=== PATIENT | female | born 1945 | race Caucasian/White ===

== ENCOUNTER 2019-07-20 12:22 | Inpatient (IN) | payer MEDICAID ==
[~2019-07-20] VITALS: Ht 157.5 cm; Wt 68.9 kg
[2019-07-20] MEDS ORDERED: KETOROLAC 30MG/ML VIAL IV STA (13:26)
[2019-07-20] MEDS ORDERED: ONDANSETRON HCL 4MG/2ML INJ IV STA (13:26)
[2019-07-20] MEDS ORDERED: SODIUM CHLORIDE 0.9% 1,000 ML IV ONE (13:26)
[2019-07-20 14:09] LABS: CLARITY URINE CLOUDY (CLEAR); COLOR URINE DARK YELLOW (YELLOW); KETONES URINE TRACE (NEGATIVE); LEUKOCYTE ESTERASE URINE TRACE (NEGATIVE); NITRITE URINE NEGATIVE (NEGATIVE); OCCULT BLOOD URINE 2+ (NEGATIVE); PROTEIN URINE 2+ (NEGATIVE); SPECIFIC GRAVITY URINE 1.027 (1.005-1.030)
[2019-07-20 14:50] LABS: BASOPHILS % 0.1 % (0.0-2.0); HEMATOCRIT. 41.7 % (36.0-48.0); LYMPHOCYTES % 9.4 % (20.0-50.0); MEAN CORPUSCULAR HEMOGLOBIN 30.2 pg (28.0-32.0); MEAN CORPUSCULAR VOLUME 89.7 fL (81.0-99.0); MEAN PLATELET VOLUME 9.6 fl (7.4-10.4); MONOCYTES % 11.8 % (2.0-8.0); NEUTROPHILS % 78.7 % (40.0-76.0); PLATELET 285 x1000/uL (130-400); RED BLOOD CELL COUNT 4.64 mill/uL (4.2-5.4); RED CELL DISTRIBUTION WIDTH 13.8 % (11.6-14.6)
[2019-07-20 14:55] LABS: CHLORIDE 98 mEq/L (98-107); INR 1.1; PROTHROMBIN TIME 11.8 sec (9.6-11.0)
[2019-07-20] MEDS ORDERED: PIPERACILLIN/TAZOBACTAM 3.375GM/50ML PREMIX IV NR (15:00)
[2019-07-20] MEDS ORDERED: ONDANSETRON HCL 4MG/2ML INJ IV PRN (17:15)
[2019-07-20] MEDS ORDERED: PIPERACILLIN/TAZ 3.375G PREMIX 50 ML IV SCH (17:15)
[2019-07-20] MEDS: SODIUM CHLORIDE 0.9% 1,000 ML IV SCH (18:27)
[2019-07-20] MEDS ORDERED: POTASSIUM CHLORIDE 20MEQ TABLET SR PO NR (22:00)
[2019-07-20 22:30] VITALS: BP 110/45
[2019-07-20] MEDS: PIPERACILLIN/TAZOBACTAM 3.375 G in DEXT 5% WATER 100 ML IV SCH (22:47)
[2019-07-20] MEDS ORDERED: HYDR25TA PO (23:41)
[2019-07-20] MEDS ORDERED: ATOR40TA70 MT (23:42)
[2019-07-20] MEDS ORDERED: LOSA50TA41 MT (23:43)
[2019-07-20] MEDS ORDERED: ASPI-1497 MT (23:44)
[2019-07-20] MEDS ORDERED: OMEP20TA2 MT (23:45)
[2019-07-21] MEDS: SODIUM CHLORIDE 0.9% 1,000 ML IV SCH ×3 (02:30→19:03)
[2019-07-21 04:00] VITALS: BP 104/68
[2019-07-21] MEDS: PIPERACILLIN/TAZOBACTAM 3.375 G in DEXT 5% WATER 100 ML IV SCH ×4 (04:32→22:16)
[2019-07-21 06:37] LABS: BASOPHILS % 0.2 % (0.0-2.0); HEMATOCRIT. 33.9 % (36.0-48.0); HEMOGLOBIN. 11.3 g/dL (12.0-16.0); LYMPHOCYTES % 10.8 % (20.0-50.0); MEAN CORPUSCULAR HEMOGLOBIN 30.2 pg (28.0-32.0); MEAN CORPUSCULAR VOLUME 90.1 fL (81.0-99.0); MEAN PLATELET VOLUME 9.3 fl (7.4-10.4); MONOCYTES % 10.9 % (2.0-8.0); NEUTROPHILS % 78.1 % (40.0-76.0); PLATELET 220 x1000/uL (130-400); RED BLOOD CELL COUNT 3.76 mill/uL (4.2-5.4); RED CELL DISTRIBUTION WIDTH 14.1 % (11.6-14.6)
[2019-07-21 06:38] LABS: CHLORIDE 105 mEq/L (98-107)
[2019-07-21 08:00] VITALS: BP 106/54
[2019-07-21] MEDS: ACETAMINOPHEN 325MG TABLET PO PRN (09:42)
[2019-07-21] MEDS ORDERED: POTASSIUM CHLORIDE INJ 40 MEQ in DEXT 5% WATER 500 ML IV NR (11:30)
[2019-07-21 12:00] VITALS: BP 110/52
[2019-07-21] MEDS ORDERED: POTASSIUM CHLORIDE 20MEQ TABLET SR PO NR (14:00)
[2019-07-21 16:30] VITALS: BP 105/47
[2019-07-21 20:00] VITALS: BP 113/51
[2019-07-22] VITALS: BP 112/46
[2019-07-22] MEDS: SODIUM CHLORIDE 0.9% 1,000 ML IV SCH ×3 (01:01→18:19)
[2019-07-22 04:00] VITALS: BP 109/48
[2019-07-22] MEDS: PIPERACILLIN/TAZOBACTAM 3.375 G in DEXT 5% WATER 100 ML IV SCH ×4 (04:13→21:15)
[2019-07-22 06:48] LABS: BASOPHILS % 0.1 % (0.0-2.0); EOSINOPHILS % 0.2 % (0.0-5.0); HEMATOCRIT. 31.6 % (36.0-48.0); HEMOGLOBIN. 10.4 g/dL (12.0-16.0); MEAN CORPUSCULAR VOLUME 90.7 fL (81.0-99.0); MEAN PLATELET VOLUME 9.5 fl (7.4-10.4); MONOCYTES % 9.1 % (2.0-8.0); NEUTROPHILS % 82.6 % (40.0-76.0); PLATELET 207 x1000/uL (130-400); RED BLOOD CELL COUNT 3.48 mill/uL (4.2-5.4); RED CELL DISTRIBUTION WIDTH 14.1 % (11.6-14.6)
[2019-07-22 06:59] LABS: CHLORIDE 111 mEq/L (98-107)
[2019-07-22 08:00] VITALS: BP 111/44
[2019-07-22] MEDS ORDERED: LIDOCAINE HCL 1% 20ML VIAL (Pyxis) INJ ONE (09:20)
[2019-07-22] MEDS ORDERED: NORMAL SALINE 0.9% 10 ML SYR ONE (09:21)
[2019-07-22] MEDS ORDERED: BACITRACIN 50,000 UNITS/VIAL ONE (09:21)
[2019-07-22] MEDS ORDERED: SKIN ADHESIVE 0.7 GM EA TOP ONE (09:21)
[2019-07-22] MEDS ORDERED: BUPIVACAINE HCL/PF 0.5% (5MG/ML) 10ML ONE (09:21)
[2019-07-22] MEDS ORDERED: ACETAMINOPHEN 650MG SUPP PR PRN (10:15)
[2019-07-22] MEDS ORDERED: ROCURONIUM BROMIDE 10MG/ML VIAL 5ML IV ONE (11:15)
[2019-07-22] MEDS ORDERED: NEOSTIGMINE METHYLSULFATE 1MG/ML 10 ML VIAL ONE (11:15)
[2019-07-22] MEDS ORDERED: FENTANYL CITRATE/PF 50MCG/ML 2ML VIAL ONE ×2 (11:15→12:54)
[2019-07-22] MEDS ORDERED: PROPOFOL 200MG/20ML VIAL IV ONE (11:15)
[2019-07-22] MEDS ORDERED: SODIUM CHLORIDE 0.9% 10ML VIAL ONE (11:16)
[2019-07-22] MEDS ORDERED: GLYCOPYRROLATE 0.2 MG/ML 2ML VIAL ONE (11:16)
[2019-07-22] MEDS ORDERED: CEFAZOLIN SODIUM 1000MG/VIAL ONE (11:16)
[2019-07-22] MEDS ORDERED: LIDOCAINE HCL/PF 1% 10 MG/ML 5ML VIAL ONE (11:16)
[2019-07-22] MEDS ORDERED: SUCCINYLCHOLINE CHLORIDE 200MG/10ML IV ONE (11:16)
[2019-07-22] MEDS ORDERED: MIDAZOLAM HCL 2 MG/2 ML VIAL ONE (11:16)
[2019-07-22] MEDS ORDERED: ONDANSETRON HCL 4MG/2ML INJ ONE (11:16)
[2019-07-22] MEDS ORDERED: METOCLOPRAMIDE HCL 10MG/2ML VIAL ONE (11:16)
[2019-07-22] MEDS ORDERED: ALBUMIN HUMAN 25GM/500ML (5%) IV NR (12:00)
[2019-07-22] MEDS ORDERED: EPHEDRINE SULFATE 50MG/ML VIAL ONE (12:03)
[2019-07-22] MEDS ORDERED: SODIUM CHLORIDE 0.9% 1,000 ML IV ONE (13:33)
[2019-07-22] MEDS ORDERED: MORPHINE SULFATE 2 MG/ML CPJ (NOT FOR IM USE) IV PRN (13:45)
[2019-07-22] MEDS ORDERED: MEPERIDINE HCL/PF 25MG/ML CPJ IV PRN (13:45)
[2019-07-22] MEDS ORDERED: ONDANSETRON HCL 4MG/2ML INJ IV PRN (13:45)
[2019-07-22] MEDS ORDERED: HYDROMORPHONE HCL/PF 2MG/ML CPJ IV PRN (13:45)
[2019-07-22 16:00] VITALS: BP 109/49
[2019-07-22] MEDS ORDERED: POTASSIUM CHLORIDE INJ 40 MEQ in DEXT 5% WATER 500 ML IV NR (17:00)
[2019-07-22] MEDS: ACETAMINOPHEN 325MG TABLET PO PRN (19:55)
[2019-07-22 20:00] VITALS: BP 108/52
[2019-07-23] VITALS: BP 102/51
[2019-07-23] MEDS: ACETAMINOPHEN 325MG TABLET PO PRN ×2 (01:47→09:35)
[2019-07-23 04:00] VITALS: BP 111/54
[2019-07-23] MEDS: PIPERACILLIN/TAZOBACTAM 3.375 G in DEXT 5% WATER 100 ML IV SCH ×2 (05:04→09:49)
[2019-07-23 07:33] LABS: CHLORIDE 110 mEq/L (98-107)
[2019-07-23 07:44] LABS: BASOPHILS % 0.1 % (0.0-2.0); EOSINOPHILS % 0.3 % (0.0-5.0); LYMPHOCYTES % 8.5 % (20.0-50.0); MEAN CORPUSCULAR HEMOGLOBIN 30.3 pg (28.0-32.0); MEAN CORPUSCULAR VOLUME 91.3 fL (81.0-99.0); MEAN PLATELET VOLUME 9.5 fl (7.4-10.4); MONOCYTES % 8.4 % (2.0-8.0); NEUTROPHILS % 82.7 % (40.0-76.0); PLATELET 239 x1000/uL (130-400); RED BLOOD CELL COUNT 3.62 mill/uL (4.2-5.4)
[2019-07-23 08:00] VITALS: BP 117/75
[2019-07-23 11:59] VITALS: BP 117/59
[2019-07-23 12:00] VITALS: BP 95/59
== END 2019-07-23 13:48 | disposition home health service (06) | DRG 710 ==
LOC: ER 12:22 → MICUSO 15:48 → EDBEDREQTM 16:03 → EDBEDREQ 16:03 → 6EST 23:28
PROVIDERS: ADMIT Internal Medicine; ATTEND Internal Medicine
PROC: 0FT44ZZ Resection of Gallbladder, Percutaneous Endoscopic Approach (ICD-10-PCS; principal; 2019-07-22)
DX: A41.9 Sepsis, unspecified organism (principal); K80.00 Calculus of gallbladder with acute cholecystitis without obstruction; N39.0 Urinary tract infection, site not specified; I10 Essential (primary) hypertension; E87.6 Hypokalemia; Z20.828 Contact with and (suspected) exposure to other viral communicable diseases; Z90.710 Acquired absence of both cervix and uterus; Z79.899 Other long term (current) drug therapy
CPT/HCPCS: 36415; 74177; 76705; 80048; 80053; 80076; 81003; 84145; 84484; 85025; 88304; 93005; 93970; 97162; 99285; J0330; J0690; J1885; J2250; J2405; J2543; J2704; J2710; J2765; J3010; J3480; J3490; J7030; J7060; P9041; U0003-CS